=== PATIENT | male | born 1950 | race Caucasian/White ===

== ENCOUNTER 2016-06-28 12:53 | Day surgery (SDCO) | payer OTHER ==
[~2016-06-28] VITALS: Ht 177.8 cm; Wt 58.6 kg
[2016-06-28 13:41] LABS: BASOPHIL 0.3 % (0-2); EOSINOPHIL 2.3 % (0-7); HCT 27.4 % (42.0-52.0); HGB 8.7 g/dl (13.2-18.0); LYMPHOCYTE 18.6 % (15-48); MCH 24.5 pg (25.0-31.0); MCHC 31.8 g/dL (32.0-36.0); MCV 77.2 fL (78.0-100.0); MONOCYTE 8.4 % (0-12); MPV 8.8 fL (6.0-9.5); NEUTROPHIL 70.4 % (41-80); PLT 408 K/uL (150-400); RBC 3.55 M/uL (4.70-6.00); RDW 16.3 % (11.5-14.0); WBC 9.4 K/uL (4.0-10.5)
[2016-06-28 13:45] LABS: INR 0.92 (0.9-1.2)
[2016-06-28 13:53] LABS: ALBUMIN 4.1 g/dL (3.4-4.8); BILIRUBIN - TOTAL 0.2 mg/dL (0.1-1.0); CREATININE 0.8 mg/dL (0.7-1.2); GLOBULIN (CALCULATION) 2.1 g/dL (2.2-4.2); POTASSIUM 4.2 mmol/L (3.5-5.1); TOTAL PROTEIN 6.2 g/dL (6.4-8.3)
[2016-06-28 13:54] LABS: PRO-BNP 88 pg/mL (0-125); TROPONIN T < 0.010 ng/mL
[2016-06-28 22:31] LABS: TROPONIN T < 0.010 ng/mL
[2016-06-29 04:11] LABS: BASOPHIL 0.2 % (0-2); EOSINOPHIL 2.2 % (0-7); HCT 25.7 % (42.0-52.0); HGB 8.3 g/dl (13.2-18.0); LYMPHOCYTE 15.8 % (15-48); MCH 24.8 pg (25.0-31.0); MCHC 32.3 g/dL (32.0-36.0); MCV 76.7 fL (78.0-100.0); MONOCYTE 6.5 % (0-12); MPV 8.6 fL (6.0-9.5); NEUTROPHIL 75.3 % (41-80); PLT 386 K/uL (150-400); RBC 3.35 M/uL (4.70-6.00); RDW 16.3 % (11.5-14.0); WBC 10.7 K/uL (4.0-10.5)
[2016-06-29 04:31] LABS: CKMB 1.08 ng/mL (0.97-4.94); TROPONIN T < 0.010 ng/mL
[2016-06-29 04:32] LABS: CREATININE 0.7 mg/dL (0.7-1.2); POTASSIUM 4.4 mmol/L (3.5-5.1)
[2016-06-29] MEDS ORDERED: SEROQUEL 25MG T25 MG PO (10:42)
[2016-06-29] MEDS ORDERED: NEURONTIN300 MG PO (10:42)
[2016-06-29] MEDS ORDERED: MULTIVITAMINS1 EAC1 PO (10:43)
[2016-06-29] MEDS ORDERED: LIPITOR80 MG PO (10:43)
[2016-06-29] MEDS ORDERED: ASPIRIN CHEWABL81 MG PO (10:43)
[2016-06-29] MEDS ORDERED: COZAAR 25MG TAB25 MG PO (10:43)
[2016-06-29] MEDS ORDERED: BRILINTA90 MG PO (10:43)
[2016-06-29] MEDS ORDERED: CYMBALTA60 MG PO (10:43)
[2016-06-29] MEDS ORDERED: NORVASC10 MG PO (10:44)
[2016-06-29] MEDS ORDERED: DILANTIN100 MG PO ×2 (10:44)
[2016-06-29] MEDS ORDERED: OMEPRAZOLE40 MG PO (10:44)
[2016-06-29] MEDS ORDERED: PHENOBARBITAL64.8 MG PO (10:45)
[2016-06-29] MEDS ORDERED: NITROQUIK SL0.4 MG SL (10:45)
[2016-06-29] MEDS ORDERED: SPIRIVA18 MCG INH (10:45)
[2016-06-29 11:05] LABS: RETICULOCYTE COUNT 2.1 % (1.0-2.0)
[2016-06-29 11:16] LABS: IRON 22 ug/dL (44-196); IRON % SATURATION 7 %SAT (20-50); TIBC (TOTAL IRON + UIBC) 336 U/L (228-428); UIBC 314 ug/dL (112-346)
[2016-06-29 11:36] LABS: FOLIC ACID (SERUM) 16.7 ng/mL (5.6-45.8)
== END 2016-06-29 12:05 | disposition home or self-care (01) ==
LOC: FER 12:53 → FTCU 17:00
PROVIDERS: Emergency Medicine; ADMIT Internal Medicine
DX: I24.9 Acute ischemic heart disease, unspecified (principal); I10 Essential (primary) hypertension; Z95.5 Presence of coronary angioplasty implant and graft; E78.5 Hyperlipidemia, unspecified; D50.9 Iron deficiency anemia, unspecified; Z79.82 Long term (current) use of aspirin; G40.909 Epilepsy, unspecified, not intractable, without status epilepticus; Z79.899 Other long term (current) drug therapy; K21.9 Gastro-esophageal reflux disease without esophagitis; J44.9 Chronic obstructive pulmonary disease, unspecified; Z87.891 Personal history of nicotine dependence; Z82.49 Family history of ischemic heart disease and other diseases of the circulatory system; Z88.5 Allergy status to narcotic agent; Z88.8 Allergy status to other drugs, medicaments and biological substances
CPT/HCPCS: 36415; 71010; 80048; 80053; 80061; 80185; 82550; 82553; 82607; 82746; 83540; 83550; 83880; 84484; 85025; 85044; 85610; 93005; 94010; 94640; G0378

== ENCOUNTER 2016-07-09 05:12 | Emergency (ER) | payer OTHER, SELFPAY ==
[~2016-07-09 05:12] MED LIST: ASPIRIN CHEWABL81 MG PO; BRILINTA90 MG PO; COZAAR 25MG TAB25 MG PO; CYMBALTA60 MG PO; DILANTIN100 MG PO; LIPITOR80 MG PO; MULTIVITAMINS1 EAC1 PO; NEURONTIN300 MG PO; NITROQUIK SL0.4 MG SL; NORVASC10 MG PO; OMEPRAZOLE40 MG PO; PHENOBARBITAL64.8 MG PO; SEROQUEL 25MG T25 MG PO; SPIRIVA18 MCG INH
[2016-07-09 06:01] LABS: BASOPHIL 0.3 % (0-2); EOSINOPHIL 2.1 % (0-7); HCT 28.1 % (42.0-52.0); HGB 8.7 g/dl (13.2-18.0); LYMPHOCYTE 13.5 % (15-48); MCH 24.3 pg (25.0-31.0); MCV 78.5 fL (78.0-100.0); MONOCYTE 6.8 % (0-12); MPV 8.6 fL (6.0-9.5); NEUTROPHIL 77.3 % (41-80); PLT 487 K/uL (150-400); RBC 3.58 M/uL (4.70-6.00); RDW 18.7 % (11.5-14.0); WBC 10.8 K/uL (4.0-10.5)
[2016-07-09 06:10] LABS: INR 0.89 (0.9-1.2); PROTHROMBIN TIME 11.7 SECONDS (11.7-14.0); PTT 25.3 SECONDS (23.2-31.4)
[2016-07-09 06:17] LABS: ALBUMIN 4.1 g/dL (3.4-4.8); BILIRUBIN - TOTAL 0.2 mg/dL (0.1-1.0); CREATININE 0.9 mg/dL (0.7-1.2); GLOBULIN (CALCULATION) 2.9 g/dL (2.2-4.2); MAGNESIUM 2.14 mg/dL (1.40-2.10); POTASSIUM 4.4 mmol/L (3.5-5.1)
[2016-07-09 06:19] LABS: MYOGLOBIN 21 ng/mL (26-65); PRO-BNP 159 pg/mL (0-125); TROPONIN T < 0.010 ng/mL
[2016-07-09 07:01] LABS: DILANTIN (PHENYTOIN) 18.9 ug/mL (10.0-20.0); PHENOBARBITAL 23.5 ug/mL (10.0-30.0)
== END 2016-07-09 06:38 | disposition home or self-care (01) ==
LOC: FER 05:12
PROVIDERS: Emergency Medicine Emergency Medical Services
DX: R07.9 Chest pain, unspecified (principal); R74.8 Abnormal levels of other serum enzymes; R06.02 Shortness of breath; R42 Dizziness and giddiness; I25.10 Atherosclerotic heart disease of native coronary artery without angina pectoris; I10 Essential (primary) hypertension; G43.909 Migraine, unspecified, not intractable, without status migrainosus; J44.9 Chronic obstructive pulmonary disease, unspecified; D50.9 Iron deficiency anemia, unspecified; E78.5 Hyperlipidemia, unspecified; Z82.49 Family history of ischemic heart disease and other diseases of the circulatory system; Z88.5 Allergy status to narcotic agent; Z88.8 Allergy status to other drugs, medicaments and biological substances; Z79.82 Long term (current) use of aspirin; Z79.899 Other long term (current) drug therapy; Z98.61 Coronary angioplasty status
CPT/HCPCS: 36415; 71010; 71275; 80053; 80184; 80185; 82550; 82553; 83605; 83735; 83874; 83880; 84484; 85025; 85610; 85730; 93005; C9113; Q9967

== ENCOUNTER → 2016-07-14 | Day surgery (SDC) | payer OTHER, SELFPAY ==
[~2016-07-14] VITALS: Ht 177.8 cm; Wt 60.4 kg
== END | disposition home or self-care (01) ==
LOC: FAS 10:37
DX: K29.50 Unspecified chronic gastritis without bleeding (principal); K21.9 Gastro-esophageal reflux disease without esophagitis; K44.9 Diaphragmatic hernia without obstruction or gangrene; I10 Essential (primary) hypertension; I25.10 Atherosclerotic heart disease of native coronary artery without angina pectoris; E78.00 Pure hypercholesterolemia, unspecified; J30.9 Allergic rhinitis, unspecified; J44.9 Chronic obstructive pulmonary disease, unspecified; F41.9 Anxiety disorder, unspecified; F31.9 Bipolar disorder, unspecified; G40.909 Epilepsy, unspecified, not intractable, without status epilepticus; M19.90 Unspecified osteoarthritis, unspecified site; M54.5 Low back pain; N42.9 Disorder of prostate, unspecified; Z95.5 Presence of coronary angioplasty implant and graft; Z87.891 Personal history of nicotine dependence; Z80.3 Family history of malignant neoplasm of breast; Z83.3 Family history of diabetes mellitus; Z81.1 Family history of alcohol abuse and dependence; Z79.82 Long term (current) use of aspirin; Z79.899 Other long term (current) drug therapy; Z98.890 Other specified postprocedural states
CPT/HCPCS: 88305; J2704

== ENCOUNTER → 2016-07-26 | Day surgery (SDC) | payer OTHER, SELFPAY ==
[~2016-07-26] VITALS: Ht 177.8 cm; Wt 60.4 kg
== END | disposition home or self-care (01) ==
LOC: FAS 10:15
DX: K56.2 Volvulus (principal); D50.0 Iron deficiency anemia secondary to blood loss (chronic); I10 Essential (primary) hypertension; J44.9 Chronic obstructive pulmonary disease, unspecified; M19.90 Unspecified osteoarthritis, unspecified site; K21.9 Gastro-esophageal reflux disease without esophagitis; F31.9 Bipolar disorder, unspecified; I25.10 Atherosclerotic heart disease of native coronary artery without angina pectoris; E78.00 Pure hypercholesterolemia, unspecified; R56.9 Unspecified convulsions; Z88.8 Allergy status to other drugs, medicaments and biological substances; Z79.82 Long term (current) use of aspirin; Z79.899 Other long term (current) drug therapy; Z98.890 Other specified postprocedural states; F17.210 Nicotine dependence, cigarettes, uncomplicated
CPT/HCPCS: J2704

== ENCOUNTER 2020-08-03 10:49 | Emergency (ER) | payer OTHER, MEDICARE ==
[2020-08-03 12:25] LABS: BASOPHIL 0.3 % (0-2); EOSINOPHIL 1.3 % (0-7); HCT 42.7 % (42.0-52.0); HGB 14.2 g/dl (13.2-18.0); LYMPHOCYTE 8.9 % (15-48); MCH 28.5 pg (25.0-31.0); MCHC 33.3 g/dL (32.0-36.0); MCV 85.6 fL (78.0-100.0); MONOCYTE 6.6 % (0-12); MPV 8.7 fL (6.0-9.5); NEUTROPHIL 82.1 % (41-80); NRBC 0; PLT 256 K/uL (150-400); RBC 4.99 M/uL (4.70-6.00); RDW 18.5 % (11.5-14.0); WBC 12.5 K/uL (4.0-10.5)
[2020-08-03 12:44] LABS: ALBUMIN 3.3 g/dL (3.4-5.0); BILIRUBIN - TOTAL 0.2 mg/dL (0.2-1.0); BUN/CREAT RATIO (CALC) 16.1 RATIO; CREATININE 0.93 mg/dL (0.67-1.17); GLOBULIN (CALCULATION) 3.3 g/dL; MAGNESIUM 1.8 mg/dL (1.8-2.4); POTASSIUM 4.7 mmol/L (3.5-5.1); TOTAL PROTEIN 6.6 g/dL (6.4-8.2)
[2020-08-03 13:09] LABS: PRO-BNP 196 pg/mL (<125)
[2020-08-03 13:17] LABS: BILIRUBIN NEGATIVE (NEGATIVE); BLOOD NEGATIVE Ery/uL (NEGATIVE); CLARITY CLEAR (CLEAR); COLOR YELLOW (YELLOW); GLUCOSE (U) NORMAL (NORMAL); LEUKOCYTES NEGATIVE Leu/uL (NEGATIVE); NITRITE NEGATIVE (NEGATIVE); PROTEIN NEGATIVE (NEGATIVE); UROBILINOGEN 0.2 mg/dL (0.2-1.0)
[2020-08-23] MEDS ORDERED: ISOSORBIDE MONO30 MG PO (17:05)
[2020-08-23] MEDS ORDERED: PANTOPRAZOLE SO40 MG PO (17:06)
[2020-08-23] MEDS ORDERED: TAMSULOSIN HCL0.4 MG PO (17:07)
[2020-08-23] MEDS ORDERED: DILT-XR240 MG PO (17:07)
[2020-08-23] MEDS ORDERED: ALLERGY RELIEF10 MG PO (17:09)
[2020-08-23] MEDS ORDERED: PEPCID40 MG PO (17:10)
[2020-08-23] MEDS ORDERED: IRON PO (17:11)
[2020-08-23] MEDS ORDERED: VENTOLIN (2.5 MG/3 M INH (17:12)
[2020-08-23] MEDS ORDERED: PERFOROMIS20 MCG/2 M INH (17:13)
[2020-09-10] MEDS ORDERED: NEURONTIN300 MG PO (13:16)
== END 2020-08-03 14:32 | disposition home or self-care (01) ==
LOC: FER 10:49
PROVIDERS: Emergency Medicine
DX: R55 Syncope and collapse (principal); F17.290 Nicotine dependence, other tobacco product, uncomplicated; V49.40XA Driver injured in collision with unspecified motor vehicles in traffic accident, initial encounter; Y92.410 Unspecified street and highway as the place of occurrence of the external cause
CPT/HCPCS: 36415; 71045; 80053; 81003; 83735; 83880; 84484; 85025; 93005

== ENCOUNTER → 2020-09-16 | Day surgery (SDC) | payer MEDICARE, OTHER ==
[~2020-09-16] VITALS: Ht 177.8 cm; Wt 64.5 kg
[~2020-09-16] MED LIST changes: +ALLERGY RELIEF10 MG PO; +DILT-XR240 MG PO; +IRON PO; +ISOSORBIDE MONO30 MG PO; +PANTOPRAZOLE SO40 MG PO; +PEPCID40 MG PO; +PERFOROMIS20 MCG/2 M INH; +TAMSULOSIN HCL0.4 MG PO; +VENTOLIN (2.5 MG/3 M INH
[2020-09-16 09:30] LABS: ALBUMIN 3.3 g/dL (3.4-5.0); BILIRUBIN - TOTAL 0.3 mg/dL (0.2-1.0); BUN/CREAT RATIO (CALC) 18.9 RATIO; CREATININE 0.95 mg/dL (0.67-1.17); GLOBULIN (CALCULATION) 3.8 g/dL; POTASSIUM 4.6 mmol/L (3.5-5.1); TOTAL PROTEIN 7.1 g/dL (6.4-8.2)
[2020-09-16 09:36] LABS: HCT 42.1 % (42.0-52.0); HGB 13.8 g/dl (13.2-18.0); MCH 29.6 pg (25.0-31.0); MCHC 32.8 g/dL (32.0-36.0); MCV 90.1 fL (78.0-100.0); MPV 8.8 fL (6.0-9.5); RBC 4.67 M/uL (4.70-6.00); RDW 16.2 % (11.5-14.0); WBC 8.7 K/uL (4.0-10.5)
[2020-09-16 09:40] LABS: INR 0.92 (0.9-1.2); PROTHROMBIN TIME 11.8 SECONDS (11.8-13.4)
== END | disposition home or self-care (01) ==
LOC: FAS 08:01
PROVIDERS: Surgery
DX: K31.9 Disease of stomach and duodenum, unspecified (principal); K44.9 Diaphragmatic hernia without obstruction or gangrene; K92.1 Melena; K21.9 Gastro-esophageal reflux disease without esophagitis; R13.10 Dysphagia, unspecified; D50.0 Iron deficiency anemia secondary to blood loss (chronic); K25.9 Gastric ulcer, unspecified as acute or chronic, without hemorrhage or perforation; F41.9 Anxiety disorder, unspecified; I25.10 Atherosclerotic heart disease of native coronary artery without angina pectoris; J44.9 Chronic obstructive pulmonary disease, unspecified; I10 Essential (primary) hypertension; E78.00 Pure hypercholesterolemia, unspecified; M19.90 Unspecified osteoarthritis, unspecified site; F31.9 Bipolar disorder, unspecified; N42.9 Disorder of prostate, unspecified; M54.5 Low back pain; G89.29 Other chronic pain; J30.9 Allergic rhinitis, unspecified; Q89.9 Congenital malformation, unspecified; Z79.51 Long term (current) use of inhaled steroids; Z79.899 Other long term (current) drug therapy; Z95.5 Presence of coronary angioplasty implant and graft; Z87.891 Personal history of nicotine dependence
CPT/HCPCS: 36415; 80053; 82150; 83690; 85610; 85730; 88305; J2704; J7120